=== PATIENT | female | born 1990 | race Two or more races ===

== ENCOUNTER 2018-04-14 12:05 | Emergency (ER) | payer OTHER ==
[~2018-04-14] VITALS: Ht 157.5 cm; Wt 52.2 kg
[2018-04-14 12:22] VITALS: BP 106/63
[2018-04-14] MEDS: KETOROLAC TROMETH 30 MG/ML 1ML VIAL IM ONE (15:23)
== END 2018-04-14 15:29 | disposition home or self-care (01) ==
LOC: ER 12:05
DX: H57.12 Ocular pain, left eye (principal); R51 Headache; Z91.013 Allergy to seafood
CPT/HCPCS: 96372; 99283; J1885

== ENCOUNTER 2019-10-07 10:12 | Emergency (ER) | payer MEDICAID ==
[~2019-10-07] VITALS: Ht 157.5 cm; Wt 65.3 kg
[2019-10-07 10:27] VITALS: BP 118/68
== END 2019-10-07 11:05 | disposition home or self-care (01) ==
LOC: ER 10:12
DX: O99.512 Diseases of the respiratory system complicating pregnancy, second trimester (principal); J06.9 Acute upper respiratory infection, unspecified; J02.9 Acute pharyngitis, unspecified; Z3A.24 24 weeks gestation of pregnancy

== ENCOUNTER 2021-04-22 11:55 | Emergency (ER) | payer MEDICAID ==
[~2021-04-22] VITALS: Ht 160 cm; Wt 59.0 kg
[2021-04-22 11:57] VITALS: BP 107/71
== END 2021-04-22 13:22 | disposition home or self-care (01) ==
LOC: ER 11:55
DX: L25.9 Unspecified contact dermatitis, unspecified cause (principal)

== ENCOUNTER 2022-03-01 12:08 | Emergency (ER) | payer MEDICAID ==
[~2022-03-01] VITALS: Ht 157.5 cm; Wt 57.2 kg
[2022-03-01 13:27] VITALS: BP 111/67
[2022-03-01] MEDS ORDERED: NAP500T PO (14:43)
[2022-03-01] MEDS ORDERED: ACYC-161 PO (14:43)
[2022-03-01] MEDS ORDERED: KETOROLAC TROMETH 60MG/2ML VIAL IM ONE (14:45)
== END 2022-03-01 14:54 | disposition home or self-care (01) ==
LOC: ER 12:08
DX: A60.00 Herpesviral infection of urogenital system, unspecified (principal); Z79.899 Other long term (current) drug therapy; Z91.013 Allergy to seafood
CPT/HCPCS: 96372; 99284; J1885